=== PATIENT | female | born 1935 | race Caucasian/White ===

== ENCOUNTER 2022-05-28 14:01 | Outpatient (CLI) | payer MEDICARE | END 2022-05-28 14:02 | disposition short-term general hospital (02) | LOC: EMS 14:01 | DX: R53.1 Weakness (principal); R07.9 Chest pain, unspecified; R06.02 Shortness of breath; R11.2 Nausea with vomiting, unspecified | CPT/HCPCS: A0425; A0427 ==

== ENCOUNTER → 2022-09-01 | Outpatient (CLI) | payer MEDICARE | END | disposition short-term general hospital (02) | LOC: EMS 15:09 | DX: R53.1 Weakness (principal); R46.4 Slowness and poor responsiveness; I44.7 Left bundle-branch block, unspecified | CPT/HCPCS: A0425; A0429 ==

== ENCOUNTER 2023-12-15 16:23 | Outpatient (CLI) | payer MEDICARE | END 2023-12-15 23:59 | disposition critical access hospital (66) | LOC: EMS 16:23 | DX: M53.3 Sacrococcygeal disorders, not elsewhere classified (principal); M54.2 Cervicalgia; V00.891A Fall from other pedestrian conveyance, initial encounter; Y93.89 Activity, other specified; Y92.008 Other place in unspecified non-institutional (private) residence as the place of occurrence of the external cause | CPT/HCPCS: A0425; A0429 ==

== ENCOUNTER 2023-12-15 17:02 | Emergency (ER) | payer MEDICARE ==
--- NOTE | 2023-12-15 17:21 | ED Physician Documentation ---
PD HPI HEAD INJURY - Stated complaint Stated Complaint: GLF - Chief complaint Chief Complaint: Trauma Hd/Nk - Additional information Additional information: 88-year-old female presents emergency department after experiencing a ground- level fall. Patient has Parkinson's and uses a front wheel walker to ambulate. Today she said that she was sitting outside on her front wheel walker and during the sun and did not realize that her brakes were not locked and was on a slight downward decline for her walker rolled backwards and when it hit the gravel she fell backwards hitting the back of her head on gravel. She has no abrasions or hematoma to the back of her head but she is complaining of cervical tenderness as well as sacral tenderness. Patient denies losing consciousness no nausea vomiting she denies history of blood thinners. PD PAST MEDICAL HISTORY - Past Medical History Neuro: Parkinson's - Past Surgical History Past Surgical History: No - Present Medications Home Medications: Ambulatory Orders Medication Instructions Recorded Confirmed Carbidopa/Levodopa 25/100 [Sinemet 1 each PO DAILY 12/15/23 12/15/23 25 mg/100 mg] - Allergies Allergies/Adverse Reactions: Allergies Allergy/AdvReac Type Severity Reaction Status Date / Time No Known Drug Allergies Allergy Verified 12/15/23 17:08 - Social History Does the pt smoke?: No Smoking Status: Never smoker Does the pt drink ETOH?: No Does the pt have substance abuse?: No - POLST Patient has POLST: Yes PD ED PE NORMAL - Vitals Vital signs reviewed: Yes - General General: Alert and oriented X 3, No acute distress, Well developed/nourished - HEENT HEENT: PERRL, Moist mucous membranes, Dentition benign - Neck Neck: Other (No spinal tenderness she does endorse and perispinal tenderness full range of motion to neck given the perispinal tenderness) - Cardiac Cardiac: RRR, No murmur, No gallop, Strong equal pulses - Respiratory Respiratory: No respiratory distress, Clear bilaterally - Abdomen Abdomen: Normal bowel sounds, Soft, Non tender, No organomegaly - Back Back: No CVA TTP, No spinal TTP - Derm Derm: Normal color, Warm and dry, No rash, Other (No abrasions or contusions visualized) - Extremities Extremities: No deformity, No tenderness to palpate, Normal ROM s pain, No edema, No calf tenderness / cord - Neuro Neuro: Alert and oriented X 3, 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, No motor deficit, No sensory deficit, Normal speech Eye Opening: Spontaneous Motor: Obeys Commands Verbal: Oriented GCS Score: 15 - Psych Psych: Normal mood, Normal affect Results - Vitals Vitals: Vital Signs - 24 hr 12/15/23 12/15/23 12/15/23 17:01 17:13 19:21 Temperature 36.4 C L 36.6 C Heart Rate 81 79 69 Respiratory 18 16 16 Rate Blood Pressure 141/83 H 141/83 H 143/83 H O2 Saturation 97 97 98 Oxygen O2 Source Room air - Labs Labs: Laboratory Tests 12/15/23 12/15/23 17:21 17:21 WBC 9.8 RBC 3.91 L Hgb 12.9 Hct 40.6 MCV 103.8 H MCH 33.0 H MCHC 31.8 L RDW 12.9 Plt Count 176 MPV 8.7 Neut # (Auto) 7.8 H Lymph # (Auto) 1.2 L [place] # (Auto) 0.6 Eos # (Auto) 0.1 Baso # (Auto) 0.1 Absolute Nucleated RBC 0.00 Nucleated RBC % 0.0 Sodium 139 Potassium 4.1 Chloride 104 Carbon Dioxide 28 Anion Gap 7.0 BUN 17 Creatinine 0.9 Estimated GFR (MDRD) 59 L Glucose 96 Calcium 9.1 Magnesium 1.7 Total Bilirubin 0.6 AST 16 ALT 7 L Alkaline Phosphatase 66 Total Protein 6.6 Albumin 3.9 Globulin 2.7 Albumin/Globulin Ratio 1.4 - Rads (name of study) CT head without Relevant Findings:: Final report received, EMP independent interpretation of test, Other (No intracranial hemorrhages or abnormalities) CT C-spine without Relevant Findings:: Final report received, EMP independent interpretation of test, Other (No fractures or subluxation) CT pelvis without Relevant Findings:: Final report received, EMP independent interpretation of test, Other (No acute bony abnormalities) PD Medical Decision Making - ED course ED course: 88-year-old female presents emergency department after experiencing ground-level fall from her from a walker sitting on it and falling backwards. Labs are collected no significant anemia, RBCs 3.91 hemoglobin hematocrit within normal limits, MCV elevated at 103.8, neutrophils slightly elevated at 7.8. No significant electrolyte abnormalities, GFR 59. CT head and neck was also complete for further evaluation and did not reveal any acute abnormalities no intracranial hemorrhages or bony abnormalities of the neck. CT without was also complete of the pelvis to rule out possible fracture of the sacrum or pelvis and was found to also be unremarkable no fractures visualized. Patient was informed that she is getting be sore for the next couple days she is given Tylenol for pain and discomfort she said that she is overall feeling quite well no changes in her neurological status. Patient was given return precautions all questions answered and told to follow-up with her primary care provider for reevaluation. Departure - Departure Disposition: 01 Home, Self Care Clinical Impression: Ground-level fall Instructions: Falls Prevent Exercise, Falls Prevent Prepare What Do Comments: Thank you for trusting us with your care. We have completed a head CT, neck CT and pelvic CT to make sure that you do not have any fractures in your sacrum and all have come back unremarkable you do not have any brain bleed or any fractures as well in your neck. I would presume over the next couple days that you will be sore you can alternate between Tylenol and ibuprofen for any pain and discomfort that you are experiencing. Make sure that you do not use ibuprofen for longer than a couple days. Follow-up with your primary care provider as needed for further evaluation. Please come back to the emergency department for starting to notice any confusion, increase fatigue and lethargy, or any other concerning symptoms. Wishing you a speedy recovery. Forms: PCP List Discharge Date/Time: 12/15/23 19:22
[2023-12-15 17:26] LABS: BASOPHILS # (AUTO) 0.1 10^3/uL (0.0-0.1); BASOPHILS % (AUTO) 0.7 %; EOSINOPHILS # (AUTO) 0.1 10^3/uL (0.0-0.7); EOSINOPHILS % (AUTO) 0.9 %; HCT - HEMATOCRIT 40.6 % (37.0-47.0); HGB - HEMOGLOBIN 12.9 g/dL (12.0-16.0); LYMPHOCYTES # (AUTO) 1.2 10^3/uL (1.5-3.5); LYMPHOCYTES % (AUTO) 12.4 %; MEAN CORPUSCULAR HGB CONC 31.8 g/dL (32.0-36.0); MEAN CORPUSCULAR VOLUME 103.8 fL (81.0-99.0); MEAN PLATELET VOLUME 8.7 fL (7.9-10.8); MONOCYTES # (AUTO) 0.6 10^3/uL (0.0-1.0); MONOCYTES % (AUTO) 5.7 %; NEUTROPHILS # (AUTO) 7.8 10^3/uL (1.5-6.6); NEUTROPHILS % (AUTO) 79.9 %; PLT - PLATELET COUNT 176 10^3/uL (130-450); RED BLOOD COUNT 3.91 10^6/uL (4.20-5.40); RED CELL DISTRIBUTION WIDTH 12.9 % (12.0-15.0); WHITE BLOOD COUNT 9.8 x10^3/uL (4.8-10.8)
[2023-12-15 17:38] LABS: MAGNESIUM 1.7 mg/dL (1.7-2.3)
[2023-12-15 17:44] LABS: ALBUMIN 3.9 g/dL (3.2-5.5); ALBUMIN/GLOBULIN RATIO 1.4 (1.0-2.2); BILIRUBIN,TOTAL 0.6 mg/dL (0.2-1.0); CALCIUM 9.1 mg/dL (8.5-10.3); CREATININE 0.9 mg/dL (0.6-1.3); POTASSIUM 4.1 mmol/L (3.5-4.5); TOTAL PROTEIN 6.6 g/dL (6.4-8.9)
--- NOTE | 2023-12-15 18:27 | CT Report ---
PROCEDURE: Cervical Spine WO INDICATIONS: GLF, neck posterior neck pain TECHNIQUE: Noncontrast 3 mm thick sections acquired from the skull base to the T4 level. Sagittal and coronal r eformats were then constructed. For radiation dose reduction, the following was used: automated exp osure control, adjustment of mA and/or kV according to patient size. COMPARISON: None. FINDINGS: Image quality: Excellent. Bones: No fractures or dislocations. Visualized superior ribs are intact. Soft tissues: Prevertebral soft tissues are normal in thickness. No paravertebral hematomas. No ap ical pneumothoraces. IMPRESSION: No visualized fracture. Reviewed by: Alva Johnson MD on 12/15/2023 6:26 PM PDT Approved by: Alva Johnson MD on 12/15/2023 6:26 PM PDT Station ID: [id number]
--- NOTE | 2023-12-15 18:29 | CT Report ---
PROCEDURE: Head WO INDICATIONS: GLF, head injury TECHNIQUE: Noncontrast 4.5 mm thick angled axial sections acquired from the foramen magnum to the vertex. For r adiation dose reduction, the following was used: automated exposure control, adjustment of mA and/or kV according to patient size. COMPARISON: None. FINDINGS: Image quality: Diagnostic. CSF spaces: Basal cisterns are patent. No extra-axial fluid collections. Ventricles are normal in size and shape. Brain: No midline shift. No intracranial masses or hemorrhage. Heck-white matter interface is norm al. Skull and face: Calvarium and visualized facial bones are intact, without suspicious lesions. Bilat eral lens replacement Sinuses: Visualized sinuses and mastoids are clear. IMPRESSION: No acute intracranial pathology. Reviewed by: Rossana Naranjo MD on 12/15/2023 5:27 PM CELESTINO Approved by: Rossana Naranjo MD on 12/15/2023 5:27 PM [place] Station ID: [id number]
--- NOTE | 2023-12-15 18:36 | CT Report ---
PROCEDURE: Pelvis WO INDICATIONS: sacrum pain post GLF TECHNIQUE: Noncontrast 3 mm axial sections acquired through the bony pelvis, with coronal and sagittal reformatt ing. For radiation dose reduction, the following was used: automated exposure control, adjustment of mA and/or kV according to patient size. COMPARISON: None. FINDINGS: Image quality: Diagnostic. Bones: Bones are demineralized. No acute osseous abnormality. Mild degenerative changes of the bilat eral hips. Mild lumbosacral degenerative changes. Soft tissues: Visualized loops of the pelvis are unremarkable. No abnormal bowel wall thickening. IMPRESSION: No acute osseous abnormality. Reviewed by: Rossana Naranjo MD on 12/15/2023 5:35 PM CELESTINO Approved by: Rossana Naranjo MD on 12/15/2023 5:35 PM CELESTINO Station ID: [id number]
[2023-12-15] MEDS: ACETAMINOPHEN 325 MG TABLET PO STA (19:13)
[2023-12-15] MEDS: cefTRIAXone 1 GM in SODIUM CHLORIDE 0.9% MINIBAG 100 ML IV STA (19:14)
[2023-12-15 19:28] VITALS: BP 143/83; O2SAT 98
== END 2023-12-15 19:22 | disposition home or self-care (01) ==
LOC: EDUNIT# → EDBD → ED 17:02
DX: M54.2 Cervicalgia (principal); M53.3 Sacrococcygeal disorders, not elsewhere classified; V00.891A Fall from other pedestrian conveyance, initial encounter; Y93.89 Activity, other specified
CPT/HCPCS: 36415; 70450; 72125; 72192; 80053; 83735; 85025; 99284; A9270

== ENCOUNTER 2024-01-25 11:53 | Emergency (ER) | payer MEDICARE ==
[2024-01-25 12:16] VITALS: O2SAT 99
--- NOTE | 2024-01-25 12:18 | ED Physician Documentation ---
History of Present Illness - Stated complaint Stated Complaint: FALL - Chief complaint Chief Complaint: Trauma Hd/Nk - History obtained from History obtained from: Patient, Family - Additonal information Additional information: This is a kelle 88-year-old woman with history of Parkinson's and chronic back pain and spinal issues who is here in the hospital visiting her who recently broke his hip. She was being rolled in her walker and they had to transition and she fell down on her left side. She did hit her head but denies headache or loss of consciousness. Major site of pain is left shoulder and left ribs posteriorly. Pain is quite severe especially in the left upper ribs. She feels like her shoulder is improving already. This happened just prior to arrival. PD PAST MEDICAL HISTORY - Past Medical History Past Medical History: Yes Neuro: Parkinson's - Past Surgical History Past Surgical History: No - Present Medications Home Medications: Ambulatory Orders Medication Instructions Recorded Confirmed Carbidopa/Levodopa 25/100 [Sinemet 1 each PO DAILY 12/15/23 12/15/23 25 mg/100 mg] HYDROcod/ACETAM 5/325 [[place] 5/325] 1 - 2 tab PO Q6H PRN #7 tablet 01/25/24 - Allergies Allergies/Adverse Reactions: Allergies Allergy/AdvReac Type Severity Reaction Status Date / Time No Known Drug Allergies Allergy Verified 01/25/24 12:08 - Social History Does the pt smoke?: No Smoking Status: Never smoker Does the pt drink ETOH?: No Does the pt have substance abuse?: No - POLST Patient has POLST: Yes PD ED PE NORMAL - Vitals Vital signs reviewed: Yes - General General: Alert and oriented X 3, No acute distress - HEENT HEENT: PERRL, EOMI - Neck Neck: Supple, no meningeal sign, No bony TTP - Cardiac Cardiac: RRR, No murmur - Respiratory Respiratory: No respiratory distress, Clear bilaterally, Other (She is quite tender to the upper ribs in the posterior axillary line on the left. There is no deformity or bruising.) - Abdomen Abdomen: Non tender - Back Back: No CVA TTP, No spinal TTP - Derm Derm: Normal color, Warm and dry - Extremities Extremities: Other (Left shoulder is mildly tender, but she is able to reach over her head. The remainder of her major joints are ranged and nontender and nonpainful with motion.) - Neuro Neuro: Alert and oriented X 3, Normal speech Eye Opening: Spontaneous Motor: Obeys Commands Verbal: Oriented GCS Score: 15 Results - Vitals Vitals: Vital Signs - 24 hr 01/25/24 01/25/24 12:04 13:56 Temperature 36.3 C L 36.3 C L Heart Rate 80 75 Respiratory 16 14 Rate Blood Pressure 154/88 H 135/78 H O2 Saturation 99 99 Oxygen O2 Source Room air - Rads (name of study) CT of the head and cervical spine showing degenerative changes, no acute disease or sign of acute trauma. Relevant Findings:: Final report received, EMP independent interpretation of t est Left shoulder x-ray negative for acute trauma/fracture. Relevant Findings:: Final report received, EMP independent interpretation of test CT Chest Relevant Findings:: Final report received (CT of the chest showing no acute trauma. She does have multiple incidental findings such as emphysema, bronchiectasis, T8/T12 remote compression fractures, hiatal hernia, and coronary artery calcification), EMP independent interpretation of test PD Medical Decision Making - ED course ED course: She had a seated level fall actually from sitting in her walker. Mostly complaining of left upper posterior rib pain, but also hit her head and shoulder pain. CT imaging of the head, neck, chest and an x-ray of the left shoulder was done without pertinent positive acute findings. Incidental findings were discussed with patient and placed on her discharge instructions. She did find it interesting that she had emphysematous change as she has never smoked. Departure - Departure Disposition: 01 Home, Self Care Clinical Impression: Ground-level fall Injury of head and neck Qualifiers: Encounter type: initial encounter Qualified Code(s): S09.90XA - Unspecified injury of head, initial encounter Chest wall contusion Qualifiers: Encounter type: initial encounter Laterality: left Qualified Code(s): S20.212A - Contusion of left front wall of thorax, initial encounter Contusion of shoulder, left Qualifiers: Encounter type: initial encounter Qualified Code(s): S40.012A - Contusion of left shoulder, initial encounter Condition: Good Record reviewed to determine appropriate education?: Yes Instructions: ED Contusion Chest Wall Prescriptions: HYDROcod/ACETAM 5/325 [[place] 5/325] 1 - 2 tab PO Q6H PRN #7 tablet PRN Reason: Pain Comments: As discussed, there was no sign of acute trauma on the CAT scans of your head, neck, chest, and left shoulder x-ray. You did have multiple incidental findings, including calcification of your coronary arteries, emphysematous change of the lungs, hiatal hernia, remote, known, T8 and T12 compression fractures and a moderate hiatal hernia. None of these require any specific intervention but make sure your primary care physician is aware of these issues. Tylenol as needed per package instructions for pain. Return if worse. I sent your prescription electronically to the [facility] in [place]. I am prescribing a short course of narcotic pain medication for you. These are potentially dangerous and addictive medications that should be used carefully. These medications may constipate you. Take an yuwr-fps-ncassra stool softener (docusate) twice daily with plenty of water while taking these medications. If you go 24 hours without a bowel movement, take [id number]-[id number]-maeyrwr miralax, per package instructions. Do not drink or drive while taking these medications. If you received narcotic or sedating medications while in the emergency department, do not drive for 24 hours. Store this medication in a safe, secure place and out of reach of children. It is a violation of federal law to give or sell this medication to another person or to use in a manner other than prescribed. The ED will not refill narcotic prescriptions, including prescriptions lost or stolen. To dispose of unwanted medications: 1. [facility] provides a drop box for medication in pill form only (no liquids) 8:00 am to 4:30 p.m. Saturday-Saturday in the lobby of the [facility], [address] [place] [address]. Empty pills into ziplock bag before disposal. Call [phone] for information. 2.[employer] is a free service available to all [facility] residents. Go to [email or web address] Note that many narcotic pain relievers also contain Tylenol/acetaminophen. Please ensure that your total dose of acetaminophen from all sources does not exceed 3 g (3000 mg) per day. Forms: PCP List Discharge Date/Time: 01/25/24 13:57
[2024-01-25] MEDS: HYDROcod/ACETAM 5/325 MG TABLET PO STA (12:37)
--- NOTE | 2024-01-25 13:28 | CT Report ---
PROCEDURE: Head WO INDICATIONS: head inj TECHNIQUE: Noncontrast 4.5 mm thick angled axial sections acquired from the foramen magnum to the vertex. For r adiation dose reduction, the following was used: automated exposure control, adjustment of mA and/or kV according to patient size. COMPARISON: 12/15/2023. Correlation is made with the accompanying imaging. FINDINGS: Image quality: Excellent. CSF spaces: Basal cisterns are patent. No extra-axial fluid collections. Ventricles are normal in size and shape. Brain: No midline shift. No intracranial masses or hemorrhage. Heck-white matter interface is norm al. Skull and face: Calvarium and visualized facial bones are intact, without suspicious lesions. Sinuses: Visualized sinuses and mastoids are clear. IMPRESSION: No intracranial hemorrhage is seen. No acute intracranial pathology. Reviewed by: Bryant Alarcon MD on 01/25/2024 12:27 PM CELESTINO Approved by: Bryant Alarcon MD on 01/25/2024 12:27 PM CELESTINO Station ID: [id number]
--- NOTE | 2024-01-25 13:28 | XRAY Report ---
PROCEDURE: Shoulder 2+V LT INDICATIONS: shoulder inj TECHNIQUE: 3 views of the shoulder were acquired. COMPARISON: Correlation is made with the accompanying imaging. FINDINGS: Bones: No fractures or dislocations. No suspicious bony lesions. Visualized ribs appear intact. Age-appropriate degenerative changes are seen. Soft tissues: No suspicious soft tissue calcifications. The visualized lungs are within normal limi ts. IMPRESSION: No elsa plain film abnormality is seen. Reviewed by: Bryant Alarcon MD on 01/25/2024 12:26 PM CELESTINO Approved by: Bryant Alarcon MD on 01/25/2024 12:26 PM CELESTINO Station ID: [id number]
--- NOTE | 2024-01-25 13:30 | CT Report ---
PROCEDURE: Cervical Spine WO INDICATIONS: head inj TECHNIQUE: Noncontrast 3 mm thick sections acquired from the skull base to the T4 level. Sagittal and coronal r eformats were then constructed. For radiation dose reduction, the following was used: automated exp osure control, adjustment of mA and/or kV according to patient size. COMPARISON: 12/15/2023. Correlation is made with the accompanying imaging. FINDINGS: Image quality: Excellent. Bones: No fractures or dislocations. Visualized superior ribs are intact. Focal degenerative change can be seen involving the C1-C2 interface anteriorly. There is moderate dis c space narrowing seen at C4-C5, with at least moderate disc space narrowing seen at C5-C6. Endplate irregularity and sclerosis are seen, which are worst at C5-C6. Soft tissues: Prevertebral soft tissues are normal in thickness. No paravertebral hematomas. No ap ical pneumothoraces. IMPRESSION: No displaced cervical spine fracture is seen. Degenerative changes are seen, which are worst at the C5-C6 level. Reviewed by: Bryant Alarcon MD on 01/25/2024 12:29 PM CELESTINO Approved by: Bryant Alarcon MD on 01/25/2024 12:29 PM CELESTINO Station ID: [id number]
--- NOTE | 2024-01-25 13:34 | CT Report ---
PROCEDURE: Chest WO INDICATIONS: rib inj left TECHNIQUE: A CT scan of the chest was performed. Intravenous contrast media was not administered. Images were re corded and evaluated at appropriate window settings. Reformats: axial MIP of the chest, coronal and s agittal. For radiation dose reduction, the following was used: automated exposure control, adjustment of mA and/or kV according to patient size. COMPARISON: Correlation is made with the accompanying imaging. FINDINGS: Image quality: Diagnostic. Chest wall and lower neck: No thyroid nodule which requires sonographic follow up. No axillary or sup raclavicular adenopathy by size. Lungs and pleura: No consolidation. No pleural effusions. No pneumothorax. No suspicious pulmonary n odules which require follow up. Underlying emphysematous changes are seen, with a few scattered subp leural blebs. Mild bronchiectasis can be seen. Mediastinum: Heart size is normal. No pericardial effusion. No large vessel abnormality. Atherosclero tic calcification is seen. Moderate coronary artery calcification is seen. No mediastinal adenopathy by size criteria. There is a moderate hiatal hernia. Bones: No aggressive osseous abnormality. Chronic appearing thoracic spine compression of arteries ar e seen, which are worst at T8 and T12. At T8, there is 60-70% loss of height anteriorly. Posterior di splacement of fracture fragments of 1 to 2 mm can be seen. At T12, there is 80-90% loss of height shawn trally, with 4 to 5 mm posterior displacement of fracture fragments. Upper Abdomen: Unremarkable. IMPRESSION: No displaced rib fracture is seen. No pneumothorax. Additional findings: Moderate coronary artery calcification Underlying edematous change Mild bronchiectasis Remote T8 and T12 compression deformities Moderate hiatal hernia Reviewed by: Bryant Alarcon MD on 01/25/2024 12:33 PM CELESTINO Approved by: Bryant Alarcon MD on 01/25/2024 12:33 PM CELESTINO Station ID: [id number]
[2024-01-25 14:06] VITALS: BP 135/78
== END 2024-01-25 13:57 | disposition home or self-care (01) ==
LOC: ED 11:53
DX: S09.90XA Unspecified injury of head, initial encounter (principal); S20.212A Contusion of left front wall of thorax, initial encounter; S40.012A Contusion of left shoulder, initial encounter; V00.891A Fall from other pedestrian conveyance, initial encounter; Y93.89 Activity, other specified; Y92.239 Unspecified place in hospital as the place of occurrence of the external cause; J43.9 Emphysema, unspecified; I25.10 Atherosclerotic heart disease of native coronary artery without angina pectoris; K44.9 Diaphragmatic hernia without obstruction or gangrene; M48.54XD Collapsed vertebra, not elsewhere classified, thoracic region, subsequent encounter for fracture with routine healing
CPT/HCPCS: 70450; 71250; 72125; 73030; 99284; A9270